=== PATIENT | female | born 1990 | race Caucasian/White ===

== ENCOUNTER 2016-10-29 21:56 | Emergency (ER) | payer OTHER ==
[~2016-10-29] VITALS: Ht 149.9 cm; Wt 67.4 kg
[~2016-10-29 21:56] MED LIST: IBUPROFEN600 MG PO; Macrobid PO; Motrin PO; NORCO 5/3251 TABLET PO; Natalcare Rx,Pramile PO; PRENATAL VITAM1 EAC1; ~No Medications
[2016-10-29 22:58] LABS: HEMATOCRIT 36.2 % (36.0-46.0); MCHC 34.3 G/DL (30.0-36.0); MCV 87.4 FL (83-99); PLATELET COUNT 293 K/uL (156-360); RBC DIS.WIDTH-CV 12.1 % (11.8-14.6); RED BLOOD COUNT 4.14 M/uL (3.80-5.20); WHITE BLOOD COUNT 8.1 K/uL (4.1-10.2)
[2016-10-29 23:11] LABS: CHLORIDE 106 mEq/L (99-109); POTASSIUM 3.6 mEq/L (3.7-5.4); SODIUM 138 mEq/L (136-147)
[2016-10-29 23:13] LABS: GLUCOSE 99 mg/dL (70-99)
[2016-10-29 23:14] LABS: ANION GAP 10 MEQ/L (2-14)
[2016-10-29 23:15] LABS: TOTAL BILIRUBIN 0.2 mg/dL (0.0-1.0)
[2016-10-29 23:17] LABS: ALKALINE PHOSPHATASE 49 IU/L (3-129); GFR ESTIMATE (CALCULATED) > 59 mL/min/
[2016-10-29 23:18] LABS: UREA NITROGEN (BUN) 15 mg/dL (9-23)
[2016-10-29 23:53] LABS: QUANTITATIVE HCG 32490.5 MIU/ML
[2016-10-30 01:10] LABS: ADD MIUA? YES; BILIRUBIN NEGATIVE; BLOOD SMALL; COLOR YELLOW ((YELLOW)); GLUCOSE (STRIP) NEGATIVE; KETONES NEGATIVE; LEUKOCYTES NEGATIVE; NITRITE NEGATIVE; PROTEIN (STRIP) NEGATIVE; SPECIFIC GRAVITY 1.017 (1.000-1.030); UROBILINOGEN 0.2 MG/DL (0.2-1.0)
[2016-10-30 01:14] LABS: BACTERIA RARE /HPF; EPITHELIAL CELLS RARE /HPF; MUCUS TRACE /LPF; RED BLOOD CELLS 0-5 /HPF (0-5); UCUL ADDED? NO; WHITE BLOOD CELLS 0-5 /HPF (0-5)
[2016-10-30 01:23] VITALS: BP 119/74
== END 2016-10-30 01:30 | disposition home or self-care (01) ==
LOC: EME 21:56 → EXP 21:56
DX: O99.89 Other specified diseases and conditions complicating pregnancy, childbirth and the puerperium (principal); R10.2 Pelvic and perineal pain; O99.331 Smoking (tobacco) complicating pregnancy, first trimester; F17.200 Nicotine dependence, unspecified, uncomplicated; Z3A.01 Less than 8 weeks gestation of pregnancy
CPT/HCPCS: 76801; 80053; 81003; 84702; 85027; 99281; 99283

== ENCOUNTER 2016-11-02 18:25 | Emergency (ER) | payer OTHER ==
[~2016-11-02] VITALS: Ht 149.9 cm; Wt 66.7 kg
[2016-11-02 20:07] LABS: HEMATOCRIT 37.1 % (36.0-46.0); MCH 29.6 PG (29.0-34.0); MCV 87.1 FL (83-99); MEAN PLAT.VOLUME 8.9 uM^3 (9.5-12.4); PLATELET COUNT 284 K/uL (156-360); RBC DIS.WIDTH-CV 12.1 % (11.8-14.6); RED BLOOD COUNT 4.26 M/uL (3.80-5.20); WHITE BLOOD COUNT 8.3 K/uL (4.1-10.2)
[2016-11-02 20:10] LABS: ADD MIUA? YES; BILIRUBIN NEGATIVE; BLOOD SMALL; COLOR YELLOW ((YELLOW)); GLUCOSE (STRIP) NEGATIVE; KETONES NEGATIVE; LEUKOCYTES NEGATIVE; NITRITE NEGATIVE; PROTEIN (STRIP) NEGATIVE; SPECIFIC GRAVITY 1.021 (1.000-1.030); UROBILINOGEN 0.2 MG/DL (0.2-1.0)
[2016-11-02 20:18] LABS: BACTERIA RARE /HPF; EPITHELIAL CELLS 1+ /HPF; MUCUS TRACE /LPF; UCUL ADDED? NO; WHITE BLOOD CELLS 0-5 /HPF (0-5)
[2016-11-02 22:34] VITALS: BP 113/62
== END 2016-11-02 22:34 | disposition home or self-care (01) ==
LOC: EME 18:25
PROC: 3E0234Z Introduction of Serum, Toxoid and Vaccine into Muscle, Percutaneous Approach (ICD-10-PCS; principal; 2016-11-02)
DX: O20.0 Threatened abortion (principal); O36.0910 Maternal care for other rhesus isoimmunization, first trimester, not applicable or unspecified; O99.331 Smoking (tobacco) complicating pregnancy, first trimester; F17.200 Nicotine dependence, unspecified, uncomplicated; Z3A.01 Less than 8 weeks gestation of pregnancy
CPT/HCPCS: 76801; 81003; 83030; 84702; 85027; 86850; 86900; 86901; 99281; 99284; J2788; J2790

== ENCOUNTER 2016-11-12 10:18 | Emergency (ER) | payer OTHER ==
[~2016-11-12] VITALS: Ht 149.9 cm; Wt 67.7 kg
[2016-11-12 11:35] LABS: HEMATOCRIT 36.8 % (36.0-46.0); MCH 29.5 PG (29.0-34.0); MCHC 33.7 G/DL (30.0-36.0); MCV 87.4 FL (83-99); MEAN PLAT.VOLUME 9.2 uM^3 (9.5-12.4); PLATELET COUNT 281 K/uL (156-360); RBC DIS.WIDTH-CV 12.3 % (11.8-14.6); RBC DIS.WIDTH-SD 39.5 % (39-53); RED BLOOD COUNT 4.21 M/uL (3.80-5.20); WHITE BLOOD COUNT 8.5 K/uL (4.1-10.2)
[2016-11-12] MEDS ORDERED: PRENATAL TABLE1 EAC3 PO (14:25)
[2016-11-12 14:55] LABS: ADD MIUA? YES; BILIRUBIN NEGATIVE; BLOOD MODERATE; COLOR YELLOW ((YELLOW)); GLUCOSE (STRIP) NEGATIVE; KETONES NEGATIVE; LEUKOCYTES NEGATIVE; NITRITE NEGATIVE; PROTEIN (STRIP) NEGATIVE; SPECIFIC GRAVITY 1.016 (1.000-1.030); UROBILINOGEN 0.2 MG/DL (0.2-1.0)
[2016-11-12 14:58] LABS: BACTERIA NONE SEEN /HPF; EPITHELIAL CELLS RARE /HPF; MUCUS TRACE /LPF; RED BLOOD CELLS 0-5 /HPF (0-5); UCUL ADDED? NO; WHITE BLOOD CELLS 0-5 /HPF (0-5)
[2016-11-12 15:41] VITALS: BP 111/67
== END 2016-11-12 15:41 | disposition home or self-care (01) ==
LOC: EME 10:18
DX: O20.9 Hemorrhage in early pregnancy, unspecified (principal); Z3A.08 8 weeks gestation of pregnancy; O26.891 Other specified pregnancy related conditions, first trimester; O99.331 Smoking (tobacco) complicating pregnancy, first trimester; F17.200 Nicotine dependence, unspecified, uncomplicated
CPT/HCPCS: 76801; 81003; 84702; 85027; 86900; 86901; 99281; 99283

== ENCOUNTER 2016-12-03 20:11 | Emergency (ER) | payer OTHER ==
[~2016-12-03] VITALS: Ht 149.9 cm; Wt 67.7 kg
[~2016-12-03 20:11] MED LIST changes: +PRENATAL TABLE1 EAC3 PO
[2016-12-03 22:08] LABS: HEMATOCRIT 33.3 % (36.0-46.0); MCH 29.9 PG (29.0-34.0); MCHC 34.5 G/DL (30.0-36.0); MCV 86.5 FL (83-99); MEAN PLAT.VOLUME 8.9 uM^3 (9.5-12.4); PLATELET COUNT 287 K/uL (156-360); RBC DIS.WIDTH-CV 12.4 % (11.8-14.6); RED BLOOD COUNT 3.85 M/uL (3.80-5.20); WHITE BLOOD COUNT 7.9 K/uL (4.1-10.2)
[2016-12-03 22:18] LABS: CHLORIDE 107 mEq/L (99-109); POTASSIUM 3.8 mEq/L (3.7-5.4); SODIUM 138 mEq/L (136-147)
[2016-12-03 22:20] LABS: GLUCOSE 81 mg/dL (70-99)
[2016-12-03 22:22] LABS: ANION GAP 7 MEQ/L (2-14); TOTAL BILIRUBIN 0.2 mg/dL (0.0-1.0)
[2016-12-03 22:24] LABS: ALKALINE PHOSPHATASE 45 IU/L (3-129); GFR ESTIMATE (CALCULATED) > 59 mL/min/
[2016-12-03 22:25] LABS: UREA NITROGEN (BUN) 14 mg/dL (9-23)
[2016-12-04 00:34] LABS: ADD MIUA? YES; BILIRUBIN NEGATIVE; BLOOD NEGATIVE; COLOR YELLOW ((YELLOW)); GLUCOSE (STRIP) NEGATIVE; KETONES NEGATIVE; LEUKOCYTES NEGATIVE; NITRITE NEGATIVE; PROTEIN (STRIP) NEGATIVE; SPECIFIC GRAVITY 1.019 (1.000-1.030); UROBILINOGEN 0.2 MG/DL (0.2-1.0)
[2016-12-04 00:41] LABS: BACTERIA RARE /HPF; EPITHELIAL CELLS 1+ /HPF; MUCUS 1+ /LPF; UCUL ADDED? NO; WHITE BLOOD CELLS 0-5 /HPF (0-5)
[2016-12-04 01:18] VITALS: BP 128/62
== END 2016-12-04 01:19 | disposition home or self-care (01) ==
LOC: EME 20:11
DX: O43.891 Other placental disorders, first trimester (principal); O20.8 Other hemorrhage in early pregnancy; Z3A.12 12 weeks gestation of pregnancy; Z87.891 Personal history of nicotine dependence
CPT/HCPCS: 76801; 80053; 81003; 84702; 85027; 99281; 99283

== ENCOUNTER → 2017-04-02 | Outpatient (CLI) | payer OTHER ==
[~2017-04-02] VITALS: Ht 149.9 cm; Wt 74.1 kg
[2017-04-02 13:03] VITALS: BP 127/65
== END | disposition home or self-care (01) ==
LOC: IVINF 12:51
DX: Z31.82 Encounter for Rh incompatibility status (principal); Z3A.00 Weeks of gestation of pregnancy not specified; Z67.91 Unspecified blood type, Rh negative
CPT/HCPCS: J2790

== ENCOUNTER 2017-04-17 14:44 | Outpatient (CLI) | payer OTHER ==
[~2017-04-17] VITALS: Ht 149.9 cm; Wt 75.0 kg
[2017-04-17 15:02] VITALS: BP 133/67
[2017-04-17 16:13] LABS: ADD MIUA? YES; BILIRUBIN NEGATIVE; BLOOD NEGATIVE; COLOR YELLOW ((YELLOW)); GLUCOSE (STRIP) NEGATIVE; KETONES NEGATIVE; LEUKOCYTES NEGATIVE; NITRITE NEGATIVE; PROTEIN (STRIP) NEGATIVE; UROBILINOGEN 0.2 MG/DL (0.2-1.0)
[2017-04-17 16:19] LABS: BACTERIA NONE SEEN /HPF; CALCIUM OXALATE CRYSTALS 3+ /HPF; EPITHELIAL CELLS 1+ /HPF; MUCUS TRACE /LPF; RED BLOOD CELLS 0-5 /HPF (0-5); UCUL ADDED? NO; WHITE BLOOD CELLS 0-5 /HPF (0-5)
[2017-04-17 16:36] LABS: AMPHETAMINES QUANT VALUE 0 NG/ML; BARBITUATES QUANT VALUE 0 NG/ML; BENZODIAZEPINES QUANT VALUE 0 NG/ML; BENZODIAZEPINES, URINE SCREEN Negative (200 ng/mL); MARIJUANA QUANT VALUE 0 NG/ML; OPIATES QUANTITATIVE VALUE 0 NG/ML; PHENCYCLIDINE QUANT VALUE 0 NG/ML
[2017-04-17 16:54] VITALS: BP 116/64
== END 2017-04-17 17:12 | disposition home or self-care (01) ==
LOC: LDRP-OP 14:44 → 2WEST 14:45
PROVIDERS: Advanced Practice Midwife
DX: O47.03 False labor before 37 completed weeks of gestation, third trimester (principal); Z3A.31 31 weeks gestation of pregnancy
CPT/HCPCS: 59025; 80306 90; 81003; 87086; G0378

== ENCOUNTER 2017-06-04 10:58 | Outpatient (CLI) | payer OTHER ==
[~2017-06-04] VITALS: Ht 149.9 cm; Wt 75.9 kg
[2017-06-04 11:10] VITALS: BP 121/72
[2017-06-04 12:02] VITALS: BP 112/59
[2017-06-04 12:32] LABS: BASOPHIL (%) 0.3 % (0-1); EOSINOPHIL (%) 0.7 % (0-5); EOSINOPHIL COUNT 0.1 K/uL (0-0.3); HEMATOCRIT 39.5 % (36.0-46.0); HEMOGLOBIN 13.5 G/DL (11.9-15.5); IMMATURE GRANULOCYTE (%) 0.4 % (0.0-0.7); LYMPHOCYTE (%) 19.3 % (15-42); LYMPHOCYTE COUNT 1.8 K/uL (1.0-2.8); MCH 30.5 PG (29.0-34.0); MCHC 34.2 G/DL (30.0-36.0); MCV 89.4 FL (83-99); MONOCYTE (%) 7.7 % (3-12); MONOCYTE COUNT 0.7 K/uL (0-0.8); NEUTROPHIL (%) 71.6 % (45-76); NEUTROPHIL COUNT 6.6 K/uL (1.8-6.4); PLATELET COUNT 245 K/uL (156-360); RBC DIS.WIDTH-CV 12.8 % (11.8-14.6); RBC DIS.WIDTH-SD 42.3 % (39-53); RED BLOOD COUNT 4.42 M/uL (3.80-5.20); WHITE BLOOD COUNT 9.2 K/uL (4.1-10.2)
== END 2017-06-04 13:49 | disposition home or self-care (01) ==
LOC: LDRP-OP 10:58 → 2WEST 10:59 → LDRP-OP 11:23 → 2WEST 13:49 → LDRP-OP 07-16 17:46
PROVIDERS: Obstetrics & Gynecology
PROC: 10S0XZZ Reposition Products of Conception, External Approach (ICD-10-PCS; principal; 2017-06-04)
DX: O32.1XX0 Maternal care for breech presentation, not applicable or unspecified (principal); Z3A.37 37 weeks gestation of pregnancy; O99.333 Smoking (tobacco) complicating pregnancy, third trimester; F17.200 Nicotine dependence, unspecified, uncomplicated; O26.893 Other specified pregnancy related conditions, third trimester; Z67.91 Unspecified blood type, Rh negative
CPT/HCPCS: 59025; 85025; 86850; 86900; 86901; G0378; J2790; J3105

== ENCOUNTER 2017-06-08 08:55 | Outpatient (CLI) | payer OTHER ==
[2017-06-08 09:14] VITALS: BP 110/72
== END 2017-06-08 10:50 | disposition home or self-care (01) ==
LOC: LDRP-OP 08:55 → 2WEST 08:56 → LDRP-OP 07-16 00:25
DX: O36.8130 Decreased fetal movements, third trimester, not applicable or unspecified (principal); O32.1XX0 Maternal care for breech presentation, not applicable or unspecified; Z3A.38 38 weeks gestation of pregnancy
CPT/HCPCS: 59025; G0378

== ENCOUNTER 2017-06-16 05:48 | Inpatient (IN) | payer OTHER ==
[~2017-06-16] VITALS: Ht 149.9 cm; Wt 78.5 kg
[2017-06-16] VITALS (7 sets, daily range): BP systolic 108–121; BP diastolic 58–72
[2017-06-16 06:32] LABS: HEMATOCRIT 40.4 % (36.0-46.0); HEMOGLOBIN 14.2 G/DL (11.9-15.5); MCH 31.4 PG (29.0-34.0); MCHC 35.1 G/DL (30.0-36.0); MCV 89.4 FL (83-99); PLATELET COUNT 291 K/uL (156-360); RBC DIS.WIDTH-CV 12.9 % (11.8-14.6); RBC DIS.WIDTH-SD 42.2 % (39-53); RED BLOOD COUNT 4.52 M/uL (3.80-5.20)
[2017-06-17 02:34] VITALS: BP 110/54
[2017-06-17 07:25] LABS: BASOPHIL (%) 0.2 % (0-1); EOSINOPHIL (%) 0.8 % (0-5); EOSINOPHIL COUNT 0.1 K/uL (0-0.3); IMMATURE GRANULOCYTE (%) 0.2 % (0.0-0.7); LYMPHOCYTE (%) 18.9 % (15-42); LYMPHOCYTE COUNT 1.6 K/uL (1.0-2.8); MCH 30.6 PG (29.0-34.0); MCHC 33.9 G/DL (30.0-36.0); MCV 90.4 FL (83-99); MONOCYTE (%) 8.5 % (3-12); MONOCYTE COUNT 0.7 K/uL (0-0.8); NEUTROPHIL (%) 71.4 % (45-76); PLATELET COUNT 228 K/uL (156-360); RBC DIS.WIDTH-CV 13.2 % (11.8-14.6); WHITE BLOOD COUNT 8.4 K/uL (4.1-10.2)
[2017-06-17 07:26] LABS: HEMOGLOBIN 10.5 G/DL (11.9-15.5); RED BLOOD COUNT 3.43 M/uL (3.80-5.20)
[2017-06-17 07:59] VITALS: BP 120/63
[2017-06-17 10:54] VITALS: BP 126/58
[2017-06-17 15:47] VITALS: BP 127/68
[2017-06-17 19:53] VITALS: BP 128/61
[2017-06-17 23:11] VITALS: BP 128/68
[2017-06-18 01:58] VITALS: BP 127/71
[2017-06-18 08:05] VITALS: BP 135/68
[2017-06-18] MEDS ORDERED: ENDOCET 5-3251 EACH PO (09:26)
[2017-06-18] MEDS ORDERED: FERROUS SULFAT325 MG PO (09:26)
[2017-06-18] MEDS ORDERED: IBUPROFEN800 MG PO (09:26)
[2017-06-18 15:10] VITALS: BP 130/69
== END 2017-06-18 17:20 | disposition home or self-care (01) | DRG 765 ==
LOC: 2WEST 05:48 → 2SOUTH 07:54 → 2WEST 06-18 17:20
PROVIDERS: Obstetrics & Gynecology; Obstetrics & Gynecology Obstetrics
DX: O32.1XX0 Maternal care for breech presentation, not applicable or unspecified (principal); Z30.2 Encounter for sterilization; O34.03 Maternal care for unspecified congenital malformation of uterus, third trimester; Q51.4 Unicornate uterus; O69.81X0 Labor and delivery complicated by cord around neck, without compression, not applicable or unspecified; O99.02 Anemia complicating childbirth; D62 Acute posthemorrhagic anemia; O99.214 Obesity complicating childbirth; E66.9 Obesity, unspecified; Z68.30 Body mass index [BMI] 30.0-30.9, adult; Z3A.39 39 weeks gestation of pregnancy; Z37.0 Single live birth; Z87.891 Personal history of nicotine dependence
CPT/HCPCS: 83030; 85025; 85027; 86850; 86870; 86900; 86901; 86905; 86920; J0690; J2274; J2790; J3010; J7120

== ENCOUNTER 2017-11-29 18:44 | Emergency (ER) | payer OTHER ==
[~2017-11-29] VITALS: Ht 149.9 cm; Wt 72.8 kg
[~2017-11-29 18:44] MED LIST changes: +ENDOCET 5-3251 EACH PO; +FERROUS SULFAT325 MG PO; +IBUPROFEN800 MG PO
[2017-11-29] MEDS ORDERED: FIORICET 50-301 EAC1 PO (23:06)
[2017-11-29 23:48] VITALS: BP 115/78
== END 2017-11-29 23:49 | disposition home or self-care (01) ==
LOC: EME 18:44
DX: R51 Headache (principal); F17.200 Nicotine dependence, unspecified, uncomplicated
CPT/HCPCS: 70450; 93005; 99281; 99283